=== PATIENT | female | born 1995 | race Hispanic/Latino ===

== ENCOUNTER 2019-10-14 14:39 | Outpatient (CLI) | payer SELFPAY ==
[2019-10-14 15:32] LABS: Beta HCG Quantitative < 2.39 mIU/ML
== END 2019-10-14 14:40 | disposition home or self-care (01) ==
PROVIDERS: PCP Internal Medicine; Visit Provider Student in an Organized Health Care Education/Training Program
DX: Z30.430 Encounter for insertion of intrauterine contraceptive device (principal)
CPT/HCPCS: 36415; 84702

== ENCOUNTER 2019-11-25 13:38 | Outpatient (CLI) | payer OTHER, SELFPAY ==
[2019-11-25 14:30] LABS: Beta HCG Quantitative < 2.39 mIU/ML
== END 2019-11-25 13:39 | disposition home or self-care (01) ==
PROVIDERS: Visit Provider Student in an Organized Health Care Education/Training Program
DX: Z30.09 Encounter for other general counseling and advice on contraception (principal)
CPT/HCPCS: 36415; 84702

== ENCOUNTER 2021-07-26 15:06 | Outpatient (CLI) | payer OTHER, SELFPAY ==
--- NOTE | ~2021-07-26 | US_ITS ---
EXAMINATION: US pelvic complete w TV DATE: 07/26/2021 16:34 INDICATION: Encounter for retained checking of intrauterine device. Pelvic pain. TECHNIQUE: Multiple transabdominal sonographic images of the pelvis were obtained. COMPARISON: None. FINDINGS: The uterus measures 13.7 x 6.4 x 3.9 cm. There is no free fluid in the pelvis. The endometrial comple x measures 7 mm in thickness. There is an intrauterine device in expected position. There is a 1.5 cm subserosal fibroid of the uterine fundus. The right ovary measures 2.9 x 2.6 x 1.4 cm. The left ovar y measures 2.9 x 2.9 x 1.8 cm. There is normal vascular flow in the ovaries. IMPRESSION: 1. Intrauterine device in expected position. 2. Subserosal fibroid. Reviewed, dictated and finalized at location A. [facility]
== END 2021-07-26 15:07 | disposition home or self-care (01) ==
LOC: ANHIMG 15:09
PROVIDERS: Visit Provider Student in an Organized Health Care Education/Training Program
DX: Z30.431 Encounter for routine checking of intrauterine contraceptive device (principal)
CPT/HCPCS: 76830; 76856